=== PATIENT | male | born 1950 | race Caucasian/White ===

== ENCOUNTER → 2017-04-08 | Day surgery (SDC) | payer MEDICARE ==
[~2017-04-08] VITALS: Ht 177.8 cm; Wt 91.0 kg
[~2017-04-08] MED LIST: APREPITANT 40 MG CAP ONE; ATOR10TA15 PO; BUPIVACAINE HCL PF 0.5% 30 ML VIAL NERV BLOCK ONE; CELE200C PO; DEXAMETHASONE SOD PHOS 4 MG/ML VIAL ONE; DEXT 5%-NACL 0.45% 1000 ML INJ 1,000 ML IV SCH; IBUP800T23 PO; LACTATED RINGER'S 1000 ML INJ 1,000 ML IV ONE; LACTATED RINGER'S 1000 ML INJ 1,000 ML ONE; MIDAZOLAM HCL 5 MG/ML VIAL (1 ML) ONE; NORC5TAB PO; ONDANSETRON HCL 4 MG/2 ML VIAL IV PUSH ONE; PANT40TA3 PO; PROPOFOL 200 MG/20 ML AMP IV ONE; SODIUM CHLORIDE 0.9% FLUSH 5 ML FLUSH IVF PRN; SODIUM CHLORIDE 0.9% FLUSH 5 ML FLUSH IVF SCH; TAMS0.4C4 PO; TRAM50TA PO; TRIA37.5 PO; ceFAZolin 2 GM PREMIX 50 ML ONE
[2017-04-08 06:44] VITALS: BP 136/91; PULSE 85; RESP 16; TEMP 98.3; O2SAT 98
[2017-04-08 06:55] VITALS: PULSE 86
[2017-04-08 07:22] LABS: HEMATOCRIT 40.4 % (39.0-51.0); MEAN CELL VOLUME 80.7 FL (80.0-100.0); MEAN CORPUSCULAR HEMOGLOBIN 27.1 PG (27.0-34.0); MEAN CORPUSCULAR HGB CONC 33.6 % (32.0-36.0); PLATELET COUNT 274 TH/MM3 (150-450); RED BLOOD COUNT 5.01 MIL/MM3 (4.50-5.90); RED CELL DISTRIBUTION WIDTH 13.4 % (11.6-17.2); REVIEW FLAG FINAL; WHITE BLOOD COUNT 5.7 TH/MM3 (4.0-11.0)
[2017-04-08 07:50] VITALS: PULSE 81
--- NOTE | 2017-04-08 07:56 | HP.UPD ---
H&P Update Date: April 08, 2017 Note The Pre-Admit History and Physical Examination regarding the above named patient was reviewed (including, but not limited to, vital signs, medications, allergies, co-morbid conditions), and upon re-examination it is noted that: Indicated with "X" x - the patient's condition has not significantly changed since the last examination. [] - the patient's condition has changed since the last examination. Changes: Marietta Milton MD April 08, 2017 07:55
[2017-04-08 09:52] VITALS: PULSE 75
--- NOTE | 2017-04-08 09:59 | HHI.PR ---
Immediate Post Op Note Procedure Date: April 08, 2017 Pre Op Diagnosis: (1) Primary osteoarthritis of right wrist Post Op Diagnosis: (1) Primary osteoarthritis of right wrist Surgeon: Marietta Milton Hearing Stenographer(s): None Procedure: Interposition arthroplasty of the right thumb CMC joint with tendon transfer. Anesthesia: General Drains: None Tourniquet time (min at mmHg) 61 minutes at 220 mmHg Patient to: PACU Patient Condition: Good Date/Time of Procedure: SEE SURGICAL CARE RECORD Marietta Milton MD April 08, 2017 09:59
[2017-04-08 10:45] VITALS: BP 110/70; PULSE 79; RESP 16; TEMP 98.5; O2SAT 100
--- NOTE | 2017-04-09 15:48 | EKG ---
Date Performed: 04/08/2017 Time Performed: 06:54:26 PTAGE: 66 years EKG: Sinus rhythm Leftward axis rSr'(V1) - probable normal variant Borderline ECG NO PREVIOUS TRACING DOCTOR: Ning Long Interpretating Date/Time 04/09/2017 15:46:15
--- NOTE | 2017-04-09 17:38 | MP ---
cc: EDVIN FIERRO M.D. 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 PROCEDURE Interposition arthroplasty of the right thumb CMC joint, tendon transfer ANESTHESIA General SURGEON Dr. 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 FINDINGS There is complete loss cartilage at the CMC joint of the thumb as well as loss of joint space. At the completion of the procedure, the trapezium was completely removed and replaced with a portion of the flexor carpi radialis. TOURNIQUET TIME 61 minutes. PROCEDURE IN DETAIL The patient was seen preoperatively where the site and side were identified and marked. The patient was then taken to the operating room, placed in the supine position. Her identity was checked against the arm band and the consent form, site and side confirmed, time-out called prior to beginning the procedure. The right upper extremity was prepped with Hibiclens and draped in the usual sterile fashion. The area to be incised was outlined with a marking pen as a transverse incision at the dorsal base of the CMC joint of the right thumb. In addition, a transverse incision was designed at the most distal volar portion of flexor carpi radialis in the wrist and a 10 cm proximal to this. The arm was exsanguinated and the tourniquet inflated to 220 mmHg. A #15 blade was used to make the incision over the thumb CMC joint down through skin down to the subcutaneous tissue. Under loupe magnification using sharp and blunt dissection, superficial vessels and nerves identified and retracted exposing the capsule. The tendons and their sheaths were opened and retracted exposing the capsule. An incision was made into the capsule and a curved osteotome was used to carefully separate the trapezium from its ligamentous attachments. The trapezium was then removed in piecemeal. The volar base of the thumb metacarpal was then removed with a rongeur. A 4-mm hole was drilled using sequentially large drill bits obliquely from the dorsal aspect of the metacarpal into the joint. The whole area was then copiously irrigated with saline. Attention was then turned to the volar aspect of the wrist where at the most distal volar portion of the flexor carpi radialis in the wrist, a transverse incision was made down through the skin down to the subcutaneous tissue. Using a spread technique, the fascia of the tendon sheath was identified. It was then opened both proximally and distally. A second incision was made 10 cm proximal to this over the flexor carpi radialis down through the skin down to the subcutaneous tissue. Using sharp and blunt dissection, superficial vessels and nerves were identified and retracted exposing the tendon sheath which was then opened. A clamp was placed to separate the tendon of the flexor carpi radialis from surrounding structures and the ulnar 50% was divided using a 15 blade. A tendon passer was then used to pass the tendon portion which had been incised and stripping the tendon from proximal to distal. It was then passed into the main wound using a right-angle clamp. The fibers were all the way to the insertion at the index metacarpal. Using a Chacon passer, the tendon was passed through the hole in the metacarpal. The thumb was then pulled distally and adducted against the index metacarpal and sutured upon itself using 3-0 Ethilon suture material. The remainder was wrapped around the portion coming from the index metacarpal and secured with the same suture. Excellent stability was noted. The capsule was then repaired using the same suture material. The wounds were then irrigated with saline copiously and closed with 4-0 Vicryl to the dermal layer to the main wound and Dermabond to all the wounds to approximate the skin. Once the glue had dried in several layers, Steri-Strips were applied. The tourniquet was released after 61 minutes of tourniquet time pressure was applied. After several minutes, a dressing was applied using fluffy gauze, hand wrap and a thumb spica splint. The patient was then taken from the operating room to the recovery room in satisfactory condition having tolerated the procedure well. Postoperative instructions include keeping the arm elevated, keeping it clean and dry and returning in several days for follow up. The patient was given a supraclavicular block preoperatively for postoperative pain. In addition, the patient is given a prescription for Stanley and ibuprofen. MD AUDREY Norris/ /10:04 AM /5:18 PM
== END | disposition home or self-care (01) ==
LOC: PHSDC 06:10
PROVIDERS: ATTEND Specialist
DX: M18.11 Unilateral primary osteoarthritis of first carpometacarpal joint, right hand (principal); I10 Essential (primary) hypertension; E78.5 Hyperlipidemia, unspecified
CPT/HCPCS: 01830; 25310; 25447; 36415; 64415; 85027; 93005; J0690; J1100; J2250; J7120; J8501; L3808; J2405